=== PATIENT | female | born 1975 | race African-American/Black ===

== ENCOUNTER 2018-10-02 11:57 | Emergency (ER) | payer SELFPAY ==
--- NOTE | 2018-10-02 12:44 | ER ---
Nurse's Notes [facility] Name: Vivien Mcarthur Age: 43 yrs Sex: Female : 1975 Arrival Date: 10/02/2018 Time: 12:00 Bed 20 Private MD: Diagnosis: Acute/intermittent allergic reaction, Urinary tract infection Presentation: 10/02 12:01 Presenting complaint: Patient states: 2 weeks ago, started having cough, im coughing hj clear slime and i think i have this UTI for 2 months now too;, my back hurts; reports fever and chills; took jadyn seltzer;. Transition of care: patient was not received from another setting of care. Onset of symptoms was October 02, 2018. Risk Assessment: Do you want to hurt yourself or someone else? Patient reports no desire to harm self or others. Initial Sepsis Screen: Does the patient meet any 2 criteria? No. Patient's initial sepsis screen is negative. Does the patient have a suspected source of infection? No. Patient's initial sepsis screen is negative. Care prior to arrival: None. 12:01 Method Of Arrival: Ambulatory 12:01 Acuity: VERONICA 4 Triage Assessment: 12:03 General: Appears. hj 12:03 General: Behavior is calm, cooperative, appropriate for age. Pain: Complains of pain in hj back. 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 - Social history:: Smoking status: Patient uses tobacco products, Patient/guardian denies using alcohol. - Ebola Screening: : Patient negative for fever greater than or equal to 101.5 degrees Fahrenheit, and additional compatible Ebola Virus Disease symptoms Patient denies exposure to infectious person Patient denies travel to an Ebola-affected area in the 21 days before illness onset. Screenin:02 Abuse screen: Denies threats or abuse. Denies injuries from another. Nutritional hj screening: No deficits noted. Tuberculosis screening: No symptoms or risk factors identified. Fall Risk None identified. Assessment: 12:36 General: Appears in no apparent distress. Behavior is calm, cooperative. Pain: ed1 Complains of pain in back and chest Pain currently is 10 out of 10 on a pain scale. Quality of pain is described as pressure, sharp, Pain began 2-3 days ago. Is continuous. Neuro: Level of Consciousness is awake, alert, obeys commands, Oriented to person, place, time, situation. Cardiovascular: Reports chest pain when coughing Heart tones S1 S2 present. Respiratory: Reports shortness of breath cough that is Airway is patent Respiratory effort is even, unlabored, Respiratory pattern is regular, symmetrical, Breath sounds are clear bilaterally. GI: No signs and/or symptoms were reported involving the gastrointestinal system. : Reports burning with urination, for about 2 weeks. EENT: No signs and/or symptoms were reported regarding the EENT system. Derm: Skin is intact, is healthy with good turgor, Skin is dry, Skin is normal, Skin temperature is warm. Musculoskeletal: Circulation, motion, and sensation intact. Range of motion: intact in all extremities. Vital Signs: 12:03 BP 119 / 88; Pulse 108; Resp 18; Temp 99.4(O); Pulse Ox 100% on R/A; Weight 87.09 kg; hj Height 5 ft. 4 in. (162.56 cm); Pain 10/10; 12:03 Body Mass Index 32.96 (87.09 kg, 162.56 cm) ED Course: 12:00 Patient arrived in ED. hj 12:02 Triage completed. hj 12:03 Arm band placed on right wrist. hj 12:03 Patient has correct armband on for positive identification. Placed in gown. Bed in low hj position. Call light in reach. Side rails up X 1. 12:11 Swati Herbert, RN is Primary Nurse. ed1 12:19 Lazaro Broussard MD is Attending Physician. kdr 13:05 No provider procedures requiring assistance completed. Patient did not have IV access ed1 during this emergency room visit. Administered Medications: No medications were administered Outcome: 12:43 Discharge ordered by . kdr 13:05 Discharged to home ambulatory. ed1 13:05 Condition: good 13:05 Discharge instructions given to patient, Instructed on discharge instructions, follow up and referral plans. medication usage, Demonstrated understanding of instructions, follow-up care, medications, Prescriptions given X 4. 13:07 Patient left the ED. iw Signatures: Lazaro Broussard MD MD kdr Natalee Remy RN RN iw Swati Herbert RN RN ed1 Alexander Gamez RN RN hj Corrections: (The following items were deleted from the chart) 12:04 12:01 Presenting complaint: Patient states: 2 weeks ago, started having cough, im hj coughing clear slime, reports fever and chills; took jadyn seltzer; hj 12: 12:03 87.09 kg; Height 5 ft. 4 in.; BMI: 32.9; Pain 1010; hj hj 12:07 12:03 Pulse 108bpm; Resp 18bpm; Pulse Ox 100% RA; Temp 99.4F Oral; 87.09 kg; Height 5 hj ft. 4 in.; BMI: 32.9; Pain 10; hj
--- NOTE | 2018-10-02 12:44 | EDPHYS ---
Physician Documentation [facility] Name: Vivien Mcarthur Age: 43 yrs Sex: Female : 1975 Arrival Date: 10/02/2018 Time: 12:00 Bed 20 Private MD: ED Physician Lazaro Broussard HPI: 10/02 12:36 This 43 yrs old Black Female presents to ER via Ambulatory with complaints of Cough. kdr 12:36 This 43 yrs old Black Female presents to ER via Ambulatory with complaints of Cough - kdr clear slim when exposed to cool air or certain foods/ice cream. 12:36 The patient or guardian reports Clear mucous from her mouth when she is exposed to cool kdr air flowing by her face and when eating certain food like ice cream. This is intermittent often in the middle of the night. No other associated s/s. Onset: The symptoms/episode began/occurred gradually, 3 month(s) ago. Severity of symptoms: At their worst the symptoms were mild, in the emergency department the symptoms have resolved. Modifying factors: The symptoms are alleviated by nothing, the symptoms are aggravated by foods and cool air. The patient has experienced similar episodes in the past, chronically. The patient has not recently seen a physician. 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 - Social history:: Smoking status: Patient uses tobacco products, Patient/guardian denies using alcohol. - Ebola Screening: : Patient negative for fever greater than or equal to 101.5 degrees Fahrenheit, and additional compatible Ebola Virus Disease symptoms Patient denies exposure to infectious person Patient denies travel to an Ebola-affected area in the 21 days before illness onset. ROS: 12:36 Constitutional: Negative for fever, chills, and weight loss, Eyes: Negative for injury, kdr pain, redness, and discharge, Neck: Negative for injury, pain, and swelling, Cardiovascular: Negative for chest pain, palpitations, and edema, Respiratory: Negative for shortness of breath, cough, wheezing, and pleuritic chest pain, Abdomen/GI: Negative for abdominal pain, nausea, vomiting, diarrhea, and constipation, Back: Negative for injury and pain, : Negative for injury, bleeding, discharge, and swelling, MS/Extremity: Negative for injury and deformity, Skin: Negative for injury, rash, and discoloration, Neuro: Negative for headache, weakness, numbness, tingling, and seizure activity. Psych: Negative for depression, anxiety, suicide ideation, homicidal ideation, and hallucinations, Allergy/Immunology: Negative for hives, rash, and allergies, Endocrine: Negative for neck swelling, polydipsia, polyuria, polyphagia, and marked weight changes, Hematologic/Lymphatic: Negative for swollen nodes, abnormal bleeding, and unusual bruising. 12:36 ENT: Positive for Mucous production. Exam: 12:36 Constitutional: This is a well developed, well nourished patient who is awake, alert, kdr and in no acute distress. Head/Face: Normocephalic, atraumatic. Eyes: Pupils equal round and reactive to light, extra-ocular motions intact. Lids and lashes normal. Conjunctiva and sclera are non-icteric and not injected. Cornea within normal limits. Periorbital areas with no swelling, redness, or edema. Neck: Trachea midline, no thyromegaly or masses palpated, and no cervical lymphadenopathy. Supple, full range of motion without nuchal rigidity, or vertebral point tenderness. No Meningismus. Chest/axilla: Normal chest wall appearance and motion. Nontender with no deformity. No lesions are appreciated. Cardiovascular: Regular rate and rhythm with a normal S1 and S2. No gallops, murmurs, or rubs. Normal PMI, no JVD. No pulse deficits. Respiratory: Lungs have equal breath sounds bilaterally, clear to auscultation and percussion. No rales, rhonchi or wheezes noted. No increased work of breathing, no retractions or nasal flaring. Abdomen/GI: Soft, non-tender, with normal bowel sounds. No distension or tympany. No guarding or rebound. No evidence of tenderness throughout. Back: No spinal tenderness. No costovertebral tenderness. Full range of motion. Skin: Warm, dry with normal turgor. Normal color with no rashes, no lesions, and no evidence of cellulitis. MS/ Extremity: Pulses equal, no cyanosis. Neurovascular intact. Full, normal range of motion. Neuro: Awake and alert, GCS 15, oriented to person, place, time, and situation. Cranial nerves II-XII grossly intact. Motor strength 5/5 in all extremities. Sensory grossly intact. Cerebellar exam normal. Normal gait. Psych: Awake, alert, with orientation to person, place and time. Behavior, mood, and affect are within normal limits. Vital Signs: 12:03 BP 119 / 88; Pulse 108; Resp 18; Temp 99.4(O); Pulse Ox 100% on R/A; Weight 87.09 kg; hj Height 5 ft. 4 in. (162.56 cm); Pain 10/10; 12:03 Body Mass Index 32.96 (87.09 kg, 162.56 cm) hj MDM: 12:36 Data reviewed: vital signs, nurses notes, lab test result(s). Counseling: I had a kdr detailed discussion with the patient and/or guardian regarding: the historical points, exam findings, and any diagnostic results supporting the discharge/admit diagnosis, lab results, the need for outpatient follow up. Special discussion: I discussed with the patient/guardian in detail that at this point there is no indication for admission to the hospital. It is understood, however, that if the symptoms persist or worsen the patient needs to return immediately for re-evaluation. 12:43 Patient medically screened. kdr 10/02 12:40 Order name: Urine Dipstick--Ancillary (enter results) eb 10/02 12:40 Order name: Urine --Ancillary (enter results) eb 10/02 12:35 Order name: Urine Dipstick-Ancillary (obtain specimen); Complete Time: 12:39 kdr Administered Medications: No medications were administered Disposition: 10/02/18 12:43 Discharged to Home. Impression: Acute/intermittent allergic reaction, Urinary tract infection. - Condition is Stable. - Discharge Instructions: Urinary Tract Infection, Adult, [id number], Allergies, [id number]. - Prescriptions for Mucinex DM 30- 600 mg Oral tablet extended release 12 hr - take 1 tablet by ORAL route every 12 hours As needed as needed; 20 tablet. Cipro 500 mg Oral Tablet - take 1 tablet by ORAL route every 12 hours for 7 days; 14 tablet. Medrol (Diego) 4 mg Oral Tablets, Dose Pack - take 1 tablet by ORAL route as directed - follow package instructions; 1 packet. Benadryl 25 mg Oral Capsule - take 1 capsule by ORAL route every 6 hours As needed; 30 tablet. - Medication Reconciliation Form, Thank You Letter, Antibiotic Education, Work release form form. - Follow up: Private Physician; When: 2 - 3 days; Reason: If symptoms return, Further diagnostic work-up, Recheck today's complaints, Continuance of care, Re-evaluation by your physician. - Problem is an ongoing problem. - Symptoms are unchanged. Signatures: Dispatcher [employer] EDCT Lazaro Broussard MD MD [facility] Natalee Remy RN RN iw Alexander Gamez RN RN Corrections: (The following items were deleted from the chart) 13:07 12:43 10/02/2018 12:43 Discharged to Home. Impression: Acute/intermittent allergic iw reaction, Urinary tract infection. Condition is Stable. Forms are Medication Reconciliation Form, Thank You Letter, Antibiotic Education, Prescription Opioid Use. Follow up: Private Physician; When: 2 - 3 days; Reason: If symptoms return, Further diagnostic work-up, Recheck today's complaints, Continuance of care, Re-evaluation by your physician. Problem is an ongoing problem. Symptoms are unchanged. kdr
[2018-10-02 12:56] LABS: Urine Blood NEGATIVE (NEG); Urine Glucose NEGATIVE (NEG); Urine Protein NEGATIVE (NEG); Urine pH 5.5 (5.0-7.0)
== END 2018-10-02 13:07 | disposition home or self-care (01) ==
LOC: ER 11:57
DX: N39.0 Urinary tract infection, site not specified (principal); Z91.09 Other allergy status, other than to drugs and biological substances; Z72.0 Tobacco use; Z88.0 Allergy status to penicillin
CPT/HCPCS: 81003; 81025; 99282

== ENCOUNTER 2018-11-17 09:50 | Emergency (ER) | payer SELFPAY ==
[2018-11-17 10:58] LABS: Absolute Lymphocytes (CBC) 1.2 K/uL (0.7-4.9); Absolute Monocytes 0.5 K/uL (0.1-1.3); Absolute Neutrophil 4.2 K/uL (1.8-8.0); Basophils % 0.3 % (0-1.3); Eosinophils % 2.5 % (0-4.4); Hematocrit 34.3 % (36.0-45.0); Lymphocytes % 19.5 % (15.3-44.8); Monocytes % 8.8 % (3.3-12.3); RBC Red Blood Cell Count 4.08 M/uL (3.86-4.86)
[2018-11-17] MEDS ORDERED: METHYLPREDNISOLONE 125 MG INJ ONE (11:03)
[2018-11-17] MEDS ORDERED: OSELTAMIVIR 75 MG CAP ONE (11:03)
[2018-11-17] MEDS ORDERED: predniSONE 20 MG TAB ONE (11:04)
[2018-11-17] MEDS ORDERED: ALBUTEROL 2.5 MG/3 ML NEB SOL ONE (11:04)
[2018-11-17] MEDS ORDERED: IPRATROPIUM BROM 0.5MG/2.5ML ONE (11:04)
[2018-11-17] MEDS ORDERED: CEFTRIAXONE/SWI 1gm 1 GM/10 ML SYR ONE (11:04)
[2018-11-17] MEDS ORDERED: NA CHLORIDE 0.9% 1,000 ML ONE (11:04)
[2018-11-17 11:09] LABS: ALT/SGPT 13 U/L (12-78); AST/SGOT 10 U/L (15-37); Albumin 3.5 g/dL (3.4-5.0); Alkaline Phosphatase 78 U/L (45-117); BUN Blood Urea Nitrogen 12 mg/dL (7-18); Bicarbonate 26 mmol/L (21-32); Bilirubin Total 0.3 mg/dL (0.2-1.0); Glucose Level 83 mg/dL (74-106); Potassium 3.9 mmol/L (3.5-5.1); Protein, Total 6.9 g/dL (6.4-8.2); Sodium Level 141 mmol/L (136-145)
--- NOTE | 2018-11-17 11:21 | RAD REPORT ---
EXAM DESCRIPTION: RAD - Chest Pa And Lat (2 Views) - 11/17/2018 11:15 am CLINICAL HISTORY: COUGH Chest pain. COMPARISON: No comparisons FINDINGS: The lungs are clear. The heart is normal in size. No displaced fractures. IMPRESSION: No acute or concerning finding suspected.
--- NOTE | 2018-11-17 11:21 | ER ---
Nurse's Notes [facility] Name: Vivien Mcarthur Age: 43 yrs Sex: Female : 1975 Arrival Date: 11/17/2018 Time: 09:51 Bed 23 Private MD: Diagnosis: Bronchitis, not specified as acute or chronic;Cough;Malaise and fatigue Presentation: 11/17 10:15 Presenting complaint: Patient states: fever, SOB, productive cough, body aches, nasal iw congestion, chest tightness since Friday. Transition of care: patient was not received from another setting of care. Onset of symptoms was November 14, 2018. Risk Assessment: Do you want to hurt yourself or someone else? Patient reports no desire to harm self or others. Initial Sepsis Screen: Does the patient meet any 2 criteria? No. Patient's initial sepsis screen is negative. Does the patient have a suspected source of infection? No. Patient's initial sepsis screen is negative. Care prior to arrival: None. 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 - Social history:: Smoking status: Patient uses tobacco products, smokes one-half pack cigarettes per day. - Ebola Screening: : Patient negative for fever greater than or equal to 101.5 degrees Fahrenheit, and additional compatible Ebola Virus Disease symptoms Patient denies exposure to infectious person Patient denies travel to an Ebola-affected area in the 21 days before illness onset No symptoms or risks identified at this time. - Family history:: not pertinent. Screenin:30 Abuse screen: Denies threats or abuse. Denies injuries from another. Nutritional aj1 screening: No deficits noted. Tuberculosis screening: No symptoms or risk factors identified. 13:37 Fall Risk None identified. aj1 Assessment: 10:30 General: Appears in no apparent distress. uncomfortable, ill, Behavior is calm, aj1 cooperative, appropriate for age. Pain: Complains of pain in generalized body aches. Neuro: Level of Consciousness is awake, alert, obeys commands, Oriented to person, place, time, situation. Cardiovascular: Heart tones S1 S2 present Patient's skin is warm and dry. Respiratory: Reports shortness of breath at rest cough that is productive, persistent Airway is patent Respiratory effort is even, unlabored, Respiratory pattern is regular, symmetrical, Breath sounds with wheezes bilaterally. the patient has mild shortness of breath. GI: No signs and/or symptoms were reported involving the gastrointestinal system. : No signs and/or symptoms were reported regarding the genitourinary system. EENT: No signs and/or symptoms were reported regarding the EENT system. Derm: No signs and/or symptoms reported regarding the dermatologic system. Skin is normal. Musculoskeletal: No signs and/or symptoms reported regarding the musculoskeletal system. Circulation, motion, and sensation intact. 11:05 Reassessment: Patient transported to X-Ray via wheelchair. aj1 11:25 Reassessment: Discharge pending completion of IV fluids and IV antibiotics. aj1 11:29 Reassessment: Patient appears in no apparent distress at this time. No changes from aj1 previously documented assessment. Patient and/or family updated on plan of care and expected duration. Pain level reassessed. Patient is alert, oriented x 3, equal unlabored respirations, skin warm/dry/pink. 11:45 Reassessment: Patient requests crackers and juice, patient provided crackers and juice. aj1 12:37 Reassessment: Patient state that she is hungry, patient given crackers and peanut aj1 butter. 12:38 Reassessment: Patient appears in no apparent distress at this time. No changes from aj1 previously documented assessment. Patient and/or family updated on plan of care and expected duration. Pain level reassessed. Patient is alert, oriented x 3, equal unlabored respirations, skin warm/dry/pink. 12:58 Reassessment: Patient appears in no apparent distress at this time. No changes from aj1 previously documented assessment. Patient and/or family updated on plan of care and expected duration. Pain level reassessed. Patient is alert, oriented x 3, equal unlabored respirations, skin warm/dry/pink. Vital Signs: 10:16 BP 122 / 80; Pulse 87; Resp 20 S; Temp 98.1(O); Pulse Ox 100% on R/A; Weight 90.26 kg iw (R); Height 5 ft. 3 in. (160.02 cm); Pain 9/10; 11:30 BP 112 / 83; Pulse 73; Resp 18; Pulse Ox 100% on R/A; aj1 12:58 BP 110 / 60; Pulse 89; Resp 18; Pulse Ox 99% on R/A; aj1 13:27 BP 111 / 72; Pulse 88; Resp 18; Pulse Ox 99% on R/A; aj1 10:16 Body Mass Index 35.25 (90.26 kg, 160.02 cm) iw ED Course: 09:51 Patient arrived in ED. as 10:06 Mohamud Turner MD is Attending Physician. yanni 10:16 Triage completed. iw 10:16 Arm band placed on. iw 10:30 Patient has correct armband on for positive identification. Bed in low position. Call aj1 light in reach. Side rails up X 1. 10:30 No provider procedures requiring assistance completed. aj1 10:32 Urmila Shaikh RN is Primary Nurse. aj1 10:40 Inserted saline lock: 20 gauge in right antecubital area, using aseptic technique. aj1 Blood collected. 10:40 Initial lab(s) drawn, by me, sent to lab. First set of blood cultures drawn by me. aj1 11:04 Second set of blood cultures drawn. aj1 11:08 Patient moved to radiology via wheelchair. sw 11:12 X-ray completed. Portable x-ray completed in exam room. Patient tolerated procedure sw well. Patient moved back from radiology. 11:13 Chest Pa And Lat (2 Views) XRAY In Process Unspecified. EDMS 13:35 IV discontinued, intact, bleeding controlled, No redness/swelling at site. Pressure aj1 dressing applied. Administered Medications: 11:24 Drug: Rocephin (cefTRIAXone) 50 mg/kg Route: IVPB; Site: right antecubital; aj1 12:05 Follow up: IV Status: Completed infusion; IV Intake: 20ml aj1 11:24 Drug: SOLU-Medrol 125 mg Route: IVP; Site: right antecubital; aj1 12:00 Follow up: Response: No adverse reaction aj1 11:24 Drug: predniSONE 40 mg Route: PO; aj1 12:00 Follow up: Response: No adverse reaction aj1 11:24 Drug: Albuterol - atroVENT (3:1) (2.5 mg - 0.5 mg) 3 ml Route: Nebulizer; aj1 12:00 Follow up: Response: No adverse reaction aj1 11:24 Drug: Tamiflu 75 mg Route: PO; aj 12:00 Follow up: Response: No adverse reaction aj1 11:25 Drug: NS 0.9% 1000 ml Route: IV; Rate: 1 bolus; Site: right antecubital; aj1 13:26 Follow up: IV Status: Completed infusion; IV Intake: 1000ml aj 12:00 Drug: Zithromax 500 mg Route: IVPB; Infused Over: 1 hrs; Site: right antecubital; aj1 13:36 Follow up: IV Status: Completed infusion; IV Intake: 250ml aj Intake: 12:05 IV: 20ml; Total: 20ml. 13: IV: 1000ml; Total: 1020ml. aj1 13:36 IV: 250ml; Total: 1270ml. aj1 Outcome: 11:20 Discharge ordered by . yanni 13:37 Discharged to home ambulatory. aj1 13:37 Condition: good 13:37 Discharge instructions given to patient, Instructed on discharge instructions, follow up and referral plans. no drinking with medication, no driving heavy equipment, medication usage, Demonstrated understanding of instructions, follow-up care, medications, Prescriptions given X 4. 13:37 Patient left the ED. aj1 Signatures: Dispatcher [employer] EDUrmila Frey RN RN aj1 Mohamud Turner MD MD cha Martinez, Amelia as Williams, Irene, RN RN Yanira Gillespie Corrections: (The following items were deleted from the chart) 10:15 Acuity: VERONICA 4 [facility]
--- NOTE | 2018-11-17 11:21 | EDPHYS ---
Physician Documentation [facility] Name: Vivien Mcarthur Age: 43 yrs Sex: Female : 1975 Arrival Date: 11/17/2018 Time: 09:51 Bed 23 Private MD: ED Physician Mohamud Turner HPI: 11/17 10:28 This 43 yrs old Black Female presents to ER via Ambulatory with complaints of Flu yanni Symptoms. 10:28 The patient or guardian reports airway noise, cough, flu symptoms, arthralgias, yanni low-grade fever, myalgias. Onset: The symptoms/episode began/occurred 2 day(s) ago. Severity of symptoms: At their worst the symptoms were moderate, in the emergency department the symptoms are unchanged. Modifying factors: The symptoms are alleviated by nothing, the symptoms are aggravated by nothing. Associated signs and symptoms: The patient has no apparent associated signs or symptoms. The patient has not experienced similar symptoms in the past. 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 - Social history:: Smoking status: Patient uses tobacco products, smokes one-half pack cigarettes per day. - Ebola Screening: : Patient negative for fever greater than or equal to 101.5 degrees Fahrenheit, and additional compatible Ebola Virus Disease symptoms Patient denies exposure to infectious person Patient denies travel to an Ebola-affected area in the 21 days before illness onset No symptoms or risks identified at this time. - Family history:: not pertinent. ROS: 10:28 Constitutional: Negative for fever, chills, and weight loss, Eyes: Negative for injury, yanni pain, redness, and discharge, ENT: Negative for injury, pain, and discharge, Neck: Negative for injury, pain, and swelling, Cardiovascular: Negative for chest pain, palpitations, and edema, Abdomen/GI: Negative for abdominal pain, nausea, vomiting, diarrhea, and constipation, Back: Negative for injury and pain, : Negative for injury, bleeding, discharge, and swelling, MS/Extremity: Negative for injury and deformity, Skin: Negative for injury, rash, and discoloration, Neuro: Negative for headache, weakness, numbness, tingling, and seizure, Psych: Negative for depression, anxiety, suicide ideation, homicidal ideation, and hallucinations, Allergy/Immunology: Negative for hives, rash, and allergies, Endocrine: Negative for neck swelling, polydipsia, polyuria, polyphagia, and marked weight changes, Hematologic/Lymphatic: Negative for swollen nodes, abnormal bleeding, and unusual bruising. 10:28 Respiratory: Positive for cough, shortness of breath, at rest. Exam: 10:28 Constitutional: This is a well developed, well nourished patient who is awake, alert, yanni and in no acute distress. Head/Face: Normocephalic, atraumatic. Eyes: Pupils equal round and reactive to light, extra-ocular motions intact. Lids and lashes normal. Conjunctiva and sclera are non-icteric and not injected. Cornea within normal limits. Periorbital areas with no swelling, redness, or edema. ENT: Nares patent. No nasal discharge, no septal abnormalities noted. Tympanic membranes are normal and external auditory canals are clear. Oropharynx with no redness, swelling, or masses, exudates, or evidence of obstruction, uvula midline. Mucous membranes moist. Neck: Trachea midline, no thyromegaly or masses palpated, and no cervical lymphadenopathy. Supple, full range of motion without nuchal rigidity, or vertebral point tenderness. No Meningismus. Chest/axilla: Normal chest wall appearance and motion. Nontender with no deformity. No lesions are appreciated. Cardiovascular: Regular rate and rhythm with a normal S1 and S2. No gallops, murmurs, or rubs. Normal PMI, no JVD. No pulse deficits. Abdomen/GI: Soft, non-tender, with normal bowel sounds. No distension or tympany. No guarding or rebound. No evidence of tenderness throughout. Back: No spinal tenderness. No costovertebral tenderness. Full range of motion. Female : Normal external genitalia. Skin: Warm, dry with normal turgor. Normal color with no rashes, no lesions, and no evidence of cellulitis. MS/ Extremity: Pulses equal, no cyanosis. Neurovascular intact. Full, normal range of motion. Neuro: Awake and alert, GCS 15, oriented to person, place, time, and situation. Cranial nerves II-XII grossly intact. Motor strength 5/5 in all extremities. Sensory grossly intact. Cerebellar exam normal. Normal gait. Psych: Awake, alert, with orientation to person, place and time. Behavior, mood, and affect are within normal limits. 10:28 Respiratory: the patient does not display signs of respiratory distress, Respirations: labored breathing, that is mild, Breath sounds: rhonchi, wheezing: expiratory that is mild, is heard in the right upper lobe, right middle lobe, right posterior upper lobe, right posterior middle lobe and right posterior lower lobe. 11:44 Musculoskeletal/extremity: DVT Exam: No signs of deep vein thrombosis. no pain, no yanni swelling, no tenderness, negative Homans' sign noted on exam, no appreciated bluish discoloration, no erythema, no increased warmth. Vital Signs: 10:16 BP 122 / 80; Pulse 87; Resp 20 S; Temp 98.1(O); Pulse Ox 100% on R/A; Weight 90.26 kg iw (R); Height 5 ft. 3 in. (160.02 cm); Pain 9/10; 11:30 BP 112 / 83; Pulse 73; Resp 18; Pulse Ox 100% on R/A; aj1 12:58 BP 110 / 60; Pulse 89; Resp 18; Pulse Ox 99% on R/A; aj1 13:27 BP 111 / 72; Pulse 88; Resp 18; Pulse Ox 99% on R/A; aj1 10:16 Body Mass Index 35.25 (90.26 kg, 160.02 cm) iw MDM: 10:06 Patient medically screened. [facility] 11:19 Data reviewed: vital signs, nurses notes, lab test result(s), radiologic studies, plain yanni films. 11/17 10:15 Order name: Flu; Complete Time: 11:18 [facility] 11/17 10:26 Order name: CBC with Diff; Complete Time: 11:18 [facility] 11/17 10:26 Order name: Comprehensive Metabolic Panel; Complete Time: 11:18 [facility] 11/17 10:26 Order name: Blood Culture Adult (2) [facility] 11/17 10:26 Order name: Chest Pa And Lat (2 Views) XRAY; Complete Time: 11:43 [facility] Administered Medications: 11:24 Drug: Rocephin (cefTRIAXone) 50 mg/kg Route: IVPB; Site: right antecubital; aj1 12:05 Follow up: IV Status: Completed infusion; IV Intake: 20ml 11:24 Drug: SOLU-Medrol 125 mg Route: IVP; Site: right antecubital; aj 12:00 Follow up: Response: No adverse reaction 11:24 Drug: predniSONE 40 mg Route: PO; 12:00 Follow up: Response: No adverse reaction 11:24 Drug: Albuterol - atroVENT (3:1) (2.5 mg - 0.5 mg) 3 ml Route: Nebulizer; 12:00 Follow up: Response: No adverse reaction 11:24 Drug: Tamiflu 75 mg Route: PO; 12:00 Follow up: Response: No adverse reaction 11:25 Drug: NS 0.9% 1000 ml Route: IV; Rate: 1 bolus; Site: right antecubital; aj1 13:26 Follow up: IV Status: Completed infusion; IV Intake: 1000ml 12:00 Drug: Zithromax 500 mg Route: IVPB; Infused Over: 1 hrs; Site: right antecubital; aj1 13:36 Follow up: IV Status: Completed infusion; IV Intake: 250ml aj Disposition: 11/17/18 11:20 Discharged to Home. Impression: Bronchitis, not specified as acute or chronic, Cough, Malaise and fatigue. - Condition is Stable. - Discharge Instructions: Acute Bronchitis, Adult, Fever, Adult, Upper Respiratory Infection, Adult, Upper Respiratory Infection, Adult, [id number], Cough, Adult, [id number]-vf-[id number], Cough, Adult, Fever, Adult, [id number]. - Prescriptions for Cheratussin AC 10- 100 mg/5 mL Oral liquid - take 10 milliliter by ORAL route every 4 hours; 160 milliliter. Medrol (Diego) 4 mg Oral Tablets, Dose Pack - take 1 tablet by ORAL route as directed - follow package instructions; 1 packet. Albuterol Sulfate 90 mcg/actuation - inhale 1-2 puff by INHALATION route every 4-6 hours; 1 Inhaler. Tamiflu 75 mg Oral Capsule - take 1 tablet by ORAL route every 12 hours for 5 days; 10 tablet. Zithromax 500 mg Oral Tablet - take 1 tablet by ORAL route once daily for 5 days; 5 tablet. - Work release form, Medication Reconciliation Form, Thank You Letter, Antibiotic Education, Prescription Opioid Use form. - Follow up: Private Physician; When: 2 - 3 days; Reason: Recheck today's complaints, Continuance of care, Re-evaluation by your physician. - Problem is new. - Symptoms have improved. 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 Impression: Bronchitis, not specified as aj1 acute or chronic; Cough; Malaise and fatigue. Condition is Stable. Discharge Instructions: Acute Bronchitis, Adult, Fever, Adult, Upper Respiratory Infection, Adult, Upper Respiratory Infection, Adult, [id number]-[id number], Cough, Adult, Hqpz-lo-[id number], Cough, Adult, Fever, Adult, [id number]-[id number]. Prescriptions for Cheratussin AC 10-100 mg/5 mL Oral liquid - take 10 milliliter by ORAL route every 4 hours; 160 milliliter, Medrol (Diego) 4 mg Oral Tablets, Dose Pack - take 1 tablet by ORAL route as directed - follow package instructions; 1 packet, Albuterol Sulfate 90 mcg/actuation - inhale 1-2 puff by INHALATION route every 4-6 hours; 1 Inhaler, Tamiflu 75 mg Oral Capsule - take 1 tablet by ORAL route every 12 hours for 5 days; 10 tablet, Zithromax 500 mg Oral Tablet - take 1 tablet by ORAL route once daily for 5 days; 5 tablet. and Forms are Medication Reconciliation Form, Thank You Letter, Antibiotic Education, Prescription Opioid Use. Follow up: Private Physician; When: 2 - 3 days; Reason: Recheck today's complaints, Continuance of care, Re-evaluation by your physician. Problem is new. Symptoms have improved. yanni
[2018-11-17] MEDS ORDERED: AZITHROMYCIN IV 500 MG in NA CHLORIDE 0.9% 250 ML IVPB ONE (12:00)
[2018-11-17] MEDS ORDERED: ONDANSETRON 4 MG/2 ML VIAL ONE (12:44)
== END 2018-11-17 13:37 | disposition home or self-care (01) ==
LOC: ER 09:50
DX: J40 Bronchitis, not specified as acute or chronic (principal); R53.81 Other malaise; R53.83 Other fatigue; F17.210 Nicotine dependence, cigarettes, uncomplicated; Z88.0 Allergy status to penicillin
CPT/HCPCS: 36415; 71046; 80053; 85025; 87040; 87804; 94640; 96365; 96375; 99284; J0456; J0696; J2405; J2930; J7030; J7512

== ENCOUNTER 2018-11-30 12:36 | Emergency (ER) | payer SELFPAY ==
[2018-11-30] MEDS ORDERED: TETRACAINE HCL 0.5% 4ML OPTH ONE (13:12)
[2018-11-30] MEDS ORDERED: FLUORESCEIN SODIUM 1 MG/WRAP ONE (13:26)
--- NOTE | 2018-11-30 13:42 | ER ---
Nurse's Notes [facility] Name: Vivien Mcarthur Age: 43 yrs Sex: Female : 1975 Arrival Date: 11/30/2018 Time: 12:37 Bed 30 Private MD: Diagnosis: Ocular pain, right eye Presentation: 11/30 12:38 Presenting complaint: Patient states: "I fell asleep with my contacts and woke up with aa5 blurry vision to my right eye and at work I completely lost vision to my right eye for about 5 to 10 minutes". Pt currently c/o blurry vision to right eye. Pt states "I feel like I have something in my eye but I know I don't". pt c/o burning sensation to right eye. Transition of care: patient was not received from another setting of care. Onset of symptoms was November 30, 2018. Risk Assessment: Do you want to hurt yourself or someone else? Patient reports no desire to harm self or others. Initial Sepsis Screen: Does the patient meet any 2 criteria? No. Patient's initial sepsis screen is negative. Does the patient have a suspected source of infection? No. Patient's initial sepsis screen is negative. Care prior to arrival: None. 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 - Social history:: Smoking status: Patient uses tobacco products, 3 cigarettes a day . - Ebola Screening: : No symptoms or risks identified at this time. - Family history:: not pertinent. - Hospitalizations: : No recent hospitalization is reported. Screenin:20 Abuse screen: Denies threats or abuse. Denies injuries from another. Nutritional mg2 screening: No deficits noted. Tuberculosis screening: No symptoms or risk factors identified. Fall Risk None identified. Assessment: 13:20 General: Appears in no apparent distress. comfortable, Behavior is calm, cooperative. mg2 Pain: Complains of pain in right eye Pain does not radiate. Pain currently is 2 out of 10 on a pain scale. Quality of pain is described as aching, Pain began suddenly, last night. Neuro: Level of Consciousness is awake, alert, obeys commands, Oriented to person, place, time, situation. Cardiovascular: Capillary refill < 3 seconds Patient's skin is warm and dry. Respiratory: Airway is patent Respiratory effort is even, unlabored, Respiratory pattern is regular, symmetrical. GI: No signs and/or symptoms were reported involving the gastrointestinal system. : No signs and/or symptoms were reported regarding the genitourinary system. EENT: Eyes are tearing on right eye Reports blurred vision in right eye. Derm: Skin is intact, is healthy with good turgor, Skin is pink, warm \\T\\ dry. normal. Musculoskeletal: Circulation, motion, and sensation intact. Capillary refill < 3 seconds. Vital Signs: 12:41 BP 120 / 74; Pulse 86; Resp 18 S; Temp 98.9(TE); Pulse Ox 100% on R/A; Weight 90.26 kg aa5 (R); Height 5 ft. 4 in. (162.56 cm) (R); Pain 10/10; 13:19 BP 111 / 72; Pulse 103; Resp 18; Pulse Ox 100% on R/A; mg2 12:41 Body Mass Index 34.16 (90.26 kg, 162.56 cm) aa5 ED Course: 12:37 Patient arrived in ED. as 12:38 Arm band placed on. aa5 12:40 Triage completed. aa5 12:44 Everton Myers MD is Attending Physician. rn 12:53 Juan M Pritchett RN is Primary Nurse. mg2 13:20 Patient has correct armband on for positive identification. Pulse ox on. NIBP on. Door mg2 closed. Warm blanket given. 13:22 No provider procedures requiring assistance completed. Patient did not have IV access mg2 during this emergency room visit. 13:41 Madeleine Burnett MD is Referral Physician. rn Administered Medications: 13:08 Drug: Tetracaine Drops 0.5 % 1 drops Route: Ophthalmic; Site: right eye; mg2 13:50 Follow up: Response: No adverse reaction; Marked relief of symptoms mg2 Outcome: 13:41 Discharge ordered by . rn 13:49 Discharged to home ambulatory. mg2 13:49 Condition: stable 13:49 Discharge instructions given to patient, Instructed on discharge instructions, follow up and referral plans. medication usage, Demonstrated understanding of instructions, follow-up care, medications, Prescriptions given X 1. 13:50 Patient left the ED. mg2 Signatures: Heidy Kessler Roman, MD MD rn Calderon, Audri, RN RN aa5 Juan M Pritchett RN RN mg2
--- NOTE | 2018-11-30 13:42 | EDPHYS ---
Physician Documentation [facility] Name: Vivien Mcarthur Age: 43 yrs Sex: Female : 1975 Arrival Date: 11/30/2018 Time: 12:37 Bed 30 Private MD: ED Physician Everton Myers HPI: 11/30 13:36 This 43 yrs old Black Female presents to ER via Ambulatory with complaints of right eye rn pain. 13:36 The patient is experiencing pain, tearing. Onset: The symptoms/episode began/occurred rn just prior to arrival. Duration: the symptoms are continuous. Associated signs and symptoms: Pertinent negatives: fever, headache. Patient wears hard contact lenses. Severity of symptoms: At their worst the symptoms were moderate in the emergency department the symptoms have improved. The patient has not experienced similar symptoms in the past. Reports fell asleep with contacts in eyes last night, woke up with right eye irritation, and took out contacts, reports blurry vision and feels like something is in her eye, no trauma. . 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 - Social history:: Smoking status: Patient uses tobacco products, 3 cigarettes a day . - Ebola Screening: : No symptoms or risks identified at this time. - Family history:: not pertinent. - Hospitalizations: : No recent hospitalization is reported. ROS: 13:36 Constitutional: Negative for fever, chills, and weight loss, Eyes: + right eye pain and rn drainage ENT: Negative for injury, pain, and discharge, Neuro: Negative for headache, weakness, numbness, tingling, and seizure. Exam: 13:36 Constitutional: This is a well developed, well nourished patient who is awake, alert, rn and in no acute distress. Eating chips. Head/Face: Normocephalic, atraumatic. Eyes: + right eye with clear watery discharge, no fluorescein uptake, no evidence of ulceration, neg manuel sign, no foreign body noted. COmplete relief of symptoms after tetracaine. Neuro: Awake and alert, GCS 15, oriented to person, place, time, and situation. Cranial nerves II-XII grossly intact. Motor strength 5/5 in all extremities. Sensory grossly intact. Cerebellar exam normal. Normal gait. Vital Signs: 12:41 BP 120 / 74; Pulse 86; Resp 18 S; Temp 98.9(TE); Pulse Ox 100% on R/A; Weight 90.26 kg aa5 (R); Height 5 ft. 4 in. (162.56 cm) (R); Pain 10/10; 13:19 BP 111 / 72; Pulse 103; Resp 18; Pulse Ox 100% on R/A; mg2 12:41 Body Mass Index 34.16 (90.26 kg, 162.56 cm) aa5 MDM: 12:44 Patient medically screened. rn 13:36 Differential diagnosis: Corneal abrasion of Corneal ulcer of Foreign body in Data rn reviewed: vital signs, nurses notes, and as a result, I will discharge patient. Counseling: I had a detailed discussion with the patient and/or guardian regarding: the historical points, exam findings, and any diagnostic results supporting the discharge/admit diagnosis, the need for outpatient follow up, to return to the emergency department if symptoms worsen or persist or if there are any questions or concerns that arise at home. Response to treatment: the patient's symptoms have markedly improved after treatment, and as a result, I will discharge patient. Special discussion: I discussed with the patient/guardian in detail that at this point there is no indication for admission to the hospital. It is understood, however, that if the symptoms persist or worsen the patient needs to return immediately for re-evaluation. Based on the history and exam findings, there is no indication for further emergent testing or inpatient evaluation. I discussed with the patient/guardian the need to see the opthamologist for further evaluation of the symptoms. Administered Medications: 13:08 Drug: Tetracaine Drops 0.5 % 1 drops Route: Ophthalmic; Site: right eye; mg2 13:50 Follow up: Response: No adverse reaction; Marked relief of symptoms mg2 Disposition: 11/30/18 13:41 Discharged to Home. Impression: Ocular pain, right eye. - Condition is Stable. - Discharge Instructions: Corneal Abrasion, How to Use Eye Drops and Eye Ointments. - Prescriptions for Vigamox 0.5 % Ophthalmic Drops - instill 1 drop by OPHTHALMIC route every 8 hours for 7 days; 5 milliliter. - Medication Reconciliation Form, Thank You Letter, Antibiotic Education, Prescription Opioid Use, Work release form form. - Follow up: Madeleine Burnett MD; When: As needed; Reason: Recheck today's complaints, Re-evaluation by your physician. - Problem is new. - Symptoms have improved. Signatures: Everton Myers MD MD rn Calderon, Audri, RN RN aa5 Juan M Pritchett RN RN mg2 Corrections: (The following items were deleted from the chart) 13:40 13:36 Constitutional: This is a well developed, well nourished patient who is awake, rn alert, and in no acute distress. Eating chips. Head/Face: Normocephalic, atraumatic. Eyes: + right eye with clear watery discharge, no fluorescein uptake, no evidence of ulceration, neg manuel sign, no foreign body noted. COmplete relief of symptoms after tetracaine. rn 13:50 13:41 11/30/2018 13:41 Discharged to Home. Impression: Ocular pain, right eye. mg2 Condition is Stable. Forms are Medication Reconciliation Form, Thank You Letter, Antibiotic Education, Prescription Opioid Use. Follow up: Madeleine Burnett; When: As needed; Reason: Recheck today's complaints, Re-evaluation by your physician. Problem is new. Symptoms have improved. rn
== END 2018-11-30 13:50 | disposition home or self-care (01) ==
LOC: ER 12:36
DX: H57.11 Ocular pain, right eye (principal); Z72.0 Tobacco use; Z88.0 Allergy status to penicillin

== ENCOUNTER 2022-01-01 21:35 | Emergency (ER) | payer OTHER ==
[2022-01-02] MEDS ORDERED: ACETAMINOPHEN 500 MG TAB ONE (01:01)
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
[2022-01-02 03:08] VITALS: TEMP 98.1; O2SAT 100
[2022-01-02 03:14] VITALS: BP 118/83
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
== END 2022-01-02 02:56 | disposition home or self-care (01) ==
LOC: ER 21:35
DX: S00.83XA Contusion of other part of head, initial encounter (principal); M54.2 Cervicalgia; V49.59XA Passenger injured in collision with other motor vehicles in traffic accident, initial encounter; Z88.0 Allergy status to penicillin
CPT/HCPCS: 70450; 72125; 99284

== ENCOUNTER 2024-08-02 18:55 | Emergency (ER) | payer OTHER ==
[2024-08-02] MEDS ORDERED: IBUPROFEN 400 MG TAB ONE (19:07)
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
[2024-08-03 03:11] VITALS: TEMP 98.5
[2024-08-03 03:13] VITALS: BP 129/85; O2SAT 100
== END 2024-08-02 21:07 | disposition home or self-care (01) ==
LOC: ER 18:55
DX: S19.9XXA Unspecified injury of neck, initial encounter (principal); V43.52XA Car driver injured in collision with other type car in traffic accident, initial encounter; Y93.89 Activity, other specified; Y92.488 Other paved roadways as the place of occurrence of the external cause; Z88.0 Allergy status to penicillin
CPT/HCPCS: 70450; 72125; 99283

== ENCOUNTER 2025-04-29 18:07 | Emergency (ER) | payer OTHER, SELFPAY ==
--- NOTE | 2025-04-29 19:41 | RAD REPORT ---
Exam:Elbow Left 3 View HISTORY: Left elbow pain FINDINGS: No fracture or dislocation seen
--- NOTE | 2025-04-29 19:43 | RAD REPORT ---
Exam:Hand Left 3 View CLINICAL HISTORY: Left hand pain FINDINGS: No fracture or dislocation seen
--- NOTE | 2025-04-29 19:43 | RAD REPORT ---
Exam:Forearm Left Clinical history: Left forearm pain Findings: No fracture or dislocation seen.
[2025-04-29 19:59] LABS: Urine Culture Reflex Order NOT NEEDED; Urine Microscopic Reflex YN ORDER UMIC; Urine Yeast (Budding) Trace /HPF (None Seen)
[2025-04-29] MEDS ORDERED: IBUPROFEN 400 MG TAB ONE (20:12)
--- NOTE | 2025-04-29 20:12 | EDPHYS ---
Physician Documentation [facility] Name: Vivien Mcarthur Age: 49 yrs Sex: Female : 1975 Arrival Date: 04/29/2025 Time: 18:07 Bed DX3 Private MD: ED Physician Mohamud Turner HPI: 04/29 18:28 This 49 yrs old Black Female presents to ER via Ambulatory with complaints of Arm cp Injury. 18:28 The patient or guardian complains of injury. The complaints affect the left elbow and cp left forearm. 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 Onset: The cp symptoms/episode began/occurred last week, April. 18:28 Patient reports she was seen at urgent care after the injury at work and had x-rays cp taken of her left arm. She was initially told that she sustained a fracture and placed in a splint. At follow-up appointment today at urgent care she was informed that there was no fracture and she was taken out of the splint and told that she could return to work with full use of her arm. Patient is concerned that she has a fracture in presents to the emergency department for evaluation. 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 - Infectious Disease History:: Denies. - Social history:: Smoking status: Patient reports the use of cigarette tobacco products, smokes one-half pack cigarettes per day. ROS: 18:33 MS/extremity: Positive for pain, tenderness, of the left wrist and left forearm and cp left elbow, swelling of left forearm, Negative for deformity, paresthesias, 18:33 Constitutional: Negative for body aches, chills, fever, poor PO intake, cp 18:33 Neck: Negative for pain with movement, pain at rest, stiffness, 18:33 Respiratory: Negative for cough, shortness of breath, wheezing, 18:33 Abdomen/GI: Negative for abdominal pain, vomiting, diarrhea, constipation, 18:33 Back: Negative for pain at rest, pain with movement, 18:33 All other systems are negative, Exam: 18:35 Constitutional: The patient appears in no acute distress, alert, awake, cp non-diaphoretic, non-toxic, well developed, well nourished, uncomfortable, 18:35 Head/Face: Normocephalic, atraumatic. cp 18:35 Eyes: Periorbital structures: appear normal, Conjunctiva: normal, no exudate, no injection, Sclera: no appreciated abnormality, Lids and lashes: appear normal, bilaterally, 18:35 ENT: External ear(s): are unremarkable, Nose: is normal, Mouth: Lips: moist, Oral mucosa: moist, Posterior pharynx: Airway: no evidence of obstruction, patent, 18:35 Neck: ROM/movement: is normal, is supple, without pain, no range of motions limitations, 18:35 Chest/axilla: Inspection: normal, 18:35 Cardiovascular: Rate: normal, 18:35 Respiratory: the patient does not display signs of respiratory distress, Respirations: labored breathing, is not present, Breath sounds: are clear throughout, no decreased breath sounds, no stridor, no wheezing, 18:35 Abdomen/GI: Inspection: abdomen appears normal, 18:35 Back: pain, is absent, ROM is normal, 18:35 Musculoskeletal/extremity: Extremities: noted in the left forearm: swelling and tenderness noted proximal dorsal lateral side, overlying skin warm and intact with no signs cellulitis, pain with passive ROM of left elbow and left wrist, radial pulse strong and intact, right hand neurovascular intact, Vital Signs: 18:21 BP 111 / 78; Pulse 85; Resp 18; Temp 97.8; Pulse Ox 100% on R/A; db 20:24 BP 115 / 73; Pulse 82; Resp 16; Temp 98; Pulse Ox 99% ; me1 Procedures: 20:15 Splinting: Splint applied to left arm using sling, applied by nurse. Examined by me, cp post splint application: neurovascular intact, Patient tolerated well. MDM: 18:19 Medical Screening Exam initiated cp 20:12 Data reviewed: vital signs, nurses notes, radiologic studies, plain films, and as a cp result, I will discharge patient. 20:12 Differential diagnosis: dislocation, closed fracture, contusion, tendonitis, sprain. I cp considered the following discharge prescriptions or medication management in the emergency department Medications were administered in the Emergency Department. See MAR. Independent interpretation of the following test(s) in the Emergency Department X-Ray: My interpretation is images of left elbow negative for fracture, images of left forearm negative for fracture and images of left hand negative for fracture. Test considered but Not performed: Labs: eft upper extremity. MRI: . Counseling: I had a detailed discussion with the patient and/or guardian regarding the historical points, exam findings, and any diagnostic results supporting the discharge/admit diagnosis, radiology results, the need for outpatient follow up, a orthopedic surgeon, to return to the emergency department if symptoms worsen or persist or if there are any questions or concerns that arise at home. Response to treatment: the patient's symptoms have mildly improved after treatment, and as a result, I will discharge patient. 04/29 18:30 Order name: Test, Urine; Complete Time: 20:12 cp 04/29 18:30 Order name: UA Rfx Franco Cult if indicated; Complete Time: 20:12 cp 04/29 18:30 Order name: XRAY Elbow LEFT 3 view; Complete Time: 20:12 cp 04/29 18:30 Order name: XRAY Forearm LEFT; Complete Time: 20:12 cp 04/29 18:30 Order name: XRAY Hand LEFT 3 View; Complete Time: 20:12 cp 04/29 19:56 Order name: Sling; Complete Time: 20:25 cp 04/29 19:56 Order name: Noam Wrap; Complete Time: 20:25 cp Administered Medications: 20:15 Drug: Acetaminophen-Codeine PO (300 mg-30 mg) 2 tabs PO once; RASS on ADMIN: Combtv4, me1 Very Agttd3, Agttd2, Rstlss1, AlertClm0, Drwsy-1, Lt Sdtn-2, Mod Sdtn-3, Dp Sdtn-4, UnArsble-5 Route: PO; 20:24 Follow up: Response: No adverse reaction; Pain is decreased me1 20:15 Drug: Ibuprofen PO 800 mg PO once Route: PO; me1 20:24 Follow up: Response: No adverse reaction me1 Disposition: 04/30 04:31 Chart complete. cp Disposition Summary: 04/29/25 20:12 Discharge Ordered Notes: Location: Home cp Problem: an ongoing problem cp Symptoms: have improved cp Condition: Stable cp Diagnosis - Contusion of left elbow cp - Contusion of left forearm cp - Pain in left wrist cp Followup: cp - With: Valentino Alcantara MD - When: 5 - 6 days - Reason: Recheck today's complaints Discharge Instructions: - Discharge Summary Sheet cp - Musculoskeletal Pain cp - Wrist Pain, Adult cp - Elbow Contusion cp Forms: - Medication Reconciliation Form cp - Antibiotic Education cp - Prescription Opioid Use cp - Patient Portal Instructions cp - Leadership Thank You Letter cp Prescriptions: - Diclofenac Sodium 75 mg Oral Tablet Sustained Release - take 1 tablet ORAL route 2 times per day; 30 tablet; Refills: 0, Product cp Selection Permitted - Tylenol-Codeine #3 300mg-30mg Oral tablet - take 1 tablet ORAL route every 6 hours As needed; 15 tablet; Refills: 0, cp Product Selection Permitted Signatures: Dispatcher [employer] EDMS Mohamud Fountain PA-C PA-C cp Benton, Danielle RN RN db Charlette Gabriel, ENIO RN me1 Corrections: (The following items were deleted from the chart) 04/29 18:28 18:26 Social history: Smoking status: Patient reports the use of cigarette tobacco db products, db 04/30 04:29 04/29 21:15 Splinting: Splint applied to left arm using sling, applied by nurse. cp Examined by me, post splint application: neurovascular intact, Patient tolerated well, cp
--- NOTE | 2025-04-29 20:12 | ER ---
Nurse's Notes [facility] Name: Vivien Mcarthur Age: 49 yrs Sex: Female : 1975 Arrival Date: 04/29/2025 Time: 18:07 Bed DX3 Private MD: Diagnosis: Contusion of left elbow;Contusion of left forearm;Pain in left wrist Presentation: 04/29 18:21 Chief complaint: Patient states: LEFT ARM INJURY LAST FRIDAY FROM FALL, WAS TOLD ARM IS db BROKEN AND HAD TEMPORARY SPLINT WAS TOLD TO COME BACK TODAY AND TOLD ARM IS NO LONGER BROKEN. PT REQUESTS REPEAT XRAY AT THIS ED. Coronavirus screen: Client denies travel out of the [place] in the last 14 days. At this time, the client does not indicate any symptoms associated with coronavirus-19. Ebola Screen: Patient negative for fever greater than or equal to 101.5 degrees Fahrenheit, and additional compatible Ebola Virus Disease symptoms Patient denies exposure to infectious person. Patient denies travel to an Ebola-affected area in the 21 days before illness onset. No symptoms or risks identified at this time. Initial Sepsis Screen: Does the patient meet any 2 criteria? No. Patient's initial sepsis screen is negative. Does the patient have a suspected source of infection? No. Patient's initial sepsis screen is negative. Risk Assessment: Do you want to hurt yourself or someone else? Patient reports no desire to harm self or others. Onset of symptoms was April 29, 2025. 18:21 Method Of Arrival: Ambulatory db 18:21 Acuity: VERONICA 3 db Triage Assessment: 18:26 General: Appears in no apparent distress. comfortable, Behavior is calm, cooperative. db Pain: Complains of pain in left arm. Neuro: Level of Consciousness is awake, alert, obeys commands, Oriented to person, place, time, situation. Respiratory: Airway is patent Respiratory effort is even, unlabored, Respiratory pattern is regular, symmetrical. Musculoskeletal: Circulation, motion, and sensation intact. Capillary refill Range of motion: limited in left wrist. Injury Description: Bruise sustained to left arm. 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 - Infectious Disease History:: Denies. - Social history:: Smoking status: Patient reports the use of cigarette tobacco products, smokes one-half pack cigarettes per day. Screenin:45 [facility] ED Fall Risk Assessment (Adult) History of falling in the last 3 months, me1 including since admission Yes- single mechanical fall (1 pt) Confusion or Disorientation No (0 pts) Intoxicated or Sedated No (0 pts) Impaired Gait No (0 pts) Mobility Assist Device Used No (0 pt) Altered Elimination No (0 pt) Score/Fall Risk Level 0 - 2 = Low Risk Maintained a safe environment, Provided non-skid footwear, Hourly rounding (assess needs \T\ fall precautionary measures) done. Abuse screen: Denies threats or abuse. Nutritional screening: No deficits noted. Tuberculosis screening: No symptoms or risk factors identified. Assessment: 19:45 General: Appears in no apparent distress. well groomed, well developed, well nourished, me1 Behavior is calm, cooperative, appropriate for age, Reports LEFT ARM INJURY LAST FRIDAY FROM FALL, WAS TOLD ARM IS BROKEN AND HAD TEMPORARY SPLINT WAS TOLD TO COME BACK TODAY AND TOLD ARM IS NO LONGER BROKEN. PT REQUESTS REPEAT XRAY AT THIS ED. Pain: Complains of pain in left wrist and left arm Pain does not radiate. Pain currently is 7 out of 10 on a pain scale. Quality of pain is described as aching, Pain began suddenly, Is continuous. Neuro: Level of Consciousness is awake, alert, obeys commands, Oriented to person, place, time, situation, Appropriate for age. Cardiovascular: Patient's skin is warm and dry. Respiratory: Airway is patent Respiratory effort is even, unlabored, Respiratory pattern is regular, symmetrical. GI: No signs and/or symptoms were reported involving the gastrointestinal system. : No signs and/or symptoms were reported regarding the genitourinary system. EENT: No signs and/or symptoms were reported regarding the EENT system. Derm: Skin is intact, is healthy with good turgor, Skin is normal. Musculoskeletal: Circulation, motion, and sensation intact. Range of motion: intact in all extremities, Reports pain in left wrist and left arm. Injury Description: LEFT ARM INJURY LAST FRIDAY FROM FALL, WAS TOLD ARM IS BROKEN AND HAD TEMPORARY SPLINT WAS TOLD TO COME BACK TODAY AND TOLD ARM IS NO LONGER BROKEN. PT REQUESTS REPEAT XRAY AT THIS ED. Vital Signs: 18:21 BP 111 / 78; Pulse 85; Resp 18; Temp 97.8; Pulse Ox 100% on R/A; db 20:24 BP 115 / 73; Pulse 82; Resp 16; Temp 98; Pulse Ox 99% ; me1 ED Course: 18:10 Patient arrived in ED. mr 18:18 Mohamud Fountain PA-C is PHCP. cp 18:19 Mohamud Turner MD is Attending Physician. cp 18:26 Triage completed. db 18:26 Arm band placed on right wrist. db 19:22 XRAY Elbow LEFT 3 view In Process Unspecified. EDMS 19:22 XRAY Forearm LEFT In Process Unspecified. EDMS 19:22 XRAY Hand LEFT 3 View In Process Unspecified. EDMS 19:45 Patient has correct armband on for positive identification. Provided Education on: POC. me1 Verbalized understanding.. 19:45 No provider procedures requiring assistance completed. Patient did not have IV access me1 during this emergency room visit. 19:46 Charlette Gabriel, RN is Primary Nurse. me1 19:49 UA Rfx Franco Cult if indicated Sent. me1 19:49 Test, Urine Sent. me1 19:49 Urine collected: clean catch specimen, clear. me1 20:12 Valentino Alcantara MD is Referral Physician. cp Administered Medications: 20:15 Drug: Acetaminophen-Codeine PO (300 mg-30 mg) 2 tabs PO once; RASS on ADMIN: Combtv4, me1 Very Agttd3, Agttd2, Rstlss1, AlertClm0, Drwsy-1, Lt Sdtn-2, Mod Sdtn-3, Dp Sdtn-4, UnArsble-5 Route: PO; 20:24 Follow up: Response: No adverse reaction; Pain is decreased me1 20:15 Drug: Ibuprofen PO 800 mg PO once Route: PO; me1 20:24 Follow up: Response: No adverse reaction me1 Medication: 19:45 VIS not applicable for this client. me1 Outcome: 20:12 Discharge ordered by . cp 20:24 Discharged to home ambulatory, me1 20:24 Condition: stable 20:24 Discharge instructions given to patient, Instructed on discharge instructions, follow up and referral plans. medication usage, Demonstrated understanding of instructions, follow-up care, medications, Prescriptions given X 2, 20:25 Patient left the ED. me1 Signatures: Dispatcher [employer] EDWI Sandra Mac, Scar Reg Mohamud Celeste, Joya Ferguson PA-C, cp RN RN db Charlette Gabriel RN RN me1 Corrections: (The following items were deleted from the chart) 18:27 18:21 Chief complaint: Patient states: LEFT ARM INJURY WAS TOLD ARM IS BROKEN AND HAD db TEMPORARY SPLINT WAS TOLD TO COME BACK TODAY AND TOLD ARM IS NO LONGER BROKEN. PT REQUESTS REPEAT XRAY AT THIS ED db 18:28 18:26 Social history: Smoking status: Patient reports the use of cigarette tobacco db products, db 18:29 18:21 BP 141 / 112; Pulse 116bpm; Resp 18bpm; Pulse Ox 100% RA; Temp 97.8F; db db 20:16 18:21 Chief complaint: Patient states: LEFT ARM INJURY LAST FRIDAY FROM FALL, WAS TOLD me1 ARM IS BROKEN AND HAD TEMPORARY SPLINT WAS TOLD TO COME BACK TODAY AND TOLD ARM IS NO LONGER BROKEN. PT REQUESTS REPEAT XRAY AT THIS ED db
[2025-04-29] MEDS ORDERED: CODEINE 30MG/APAP 300MG TAB ONE (20:13)
[2025-04-29 20:31] VITALS: BP 115/73; TEMP 98; O2SAT 99
== END 2025-04-29 20:25 | disposition home or self-care (01) ==
LOC: ER 18:07
DX: S50.02XA Contusion of left elbow, initial encounter (principal); S50.12XA Contusion of left forearm, initial encounter; M25.532 Pain in left wrist; F17.210 Nicotine dependence, cigarettes, uncomplicated
CPT/HCPCS: 81001; 81025; 99284